=== PATIENT | male | born 1990 | race Caucasian/White ===

== ENCOUNTER 2019-05-28 19:14 | Inpatient (IN) | payer OTHER ==
[~2019-05-28] VITALS: Ht 182.9 cm; Wt 114.8 kg
[2019-05-28 21:19] LABS: CALCIUM 8.3 mg/dL (8.5-10.1); CARBON DIOXIDE 27.4 mmol/L (21-32); CHLORIDE SERUM 98 mmol/L (98-107); CREATININE SERUM 1.3 mg/dL (0.7-1.3); GFR1 > 60 mL/min; GLUCOSE SERUM 126 mg/dL (74-106); POTASSIUM SERUM 3.1 mmol/L (3.5-5.1); SODIUM SERUM 136 mmol/L (136-145)
[2019-05-28 21:24] LABS: ALBUMIN 2.7 g/dL (3.4-5.0); ALKALINE PHOSPHATASE 89 U/L (46-116); ALT/SGPT 50 U/L (16-63); AST/SGOT 36 U/L (15-37); BILIRUBIN TOTAL 0.42 mg/dL (0.20-1.00); LIPASE 74 IU/L (73-393); TOTAL PROTEIN, SERUM 7.4 g/dL (6.4-8.2)
[2019-05-28 21:32] LABS: PLATELET COUNT 344 x10^3mcL (130-400); RED CELL DISTRIBUTION WIDTH 14.1 % (11.5-14.5)
[2019-05-28 21:34] LABS: BASOPHIL % 0 % (0-2)
[2019-05-29 02:34] VITALS: BP 115/58
[2019-05-29 02:53] LABS: microscopic required? YES; urine erythrocyte 1+ (NEGATIVE)
[2019-05-29 03:02] LABS: AMPHETAMINE QUAL UR NONE DETECTED (See below)
[2019-05-29 05:08] VITALS: BP 102/45
[2019-05-29 06:43] LABS: BASOPHIL % 0.3 % (0-2); PLATELET COUNT 334 x10^3mcL (130-400)
[2019-05-29 06:47] LABS: CALCIUM 7.7 mg/dL (8.5-10.1); CARBON DIOXIDE 24.2 mmol/L (21-32); CHLORIDE SERUM 104 mmol/L (98-107); CREATININE SERUM 1.1 mg/dL (0.7-1.3); GFR1 > 60 mL/min; GLUCOSE SERUM 106 mg/dL (74-106); POTASSIUM SERUM 3.2 mmol/L (3.5-5.1); SODIUM SERUM 140 mmol/L (136-145)
[2019-05-29 06:51] LABS: RED CELL DISTRIBUTION WIDTH 14.7 % (11.5-14.5)
[2019-05-29 16:33] VITALS: BP 106/71
[2019-05-29 19:28] VITALS: BP 102/61
[2019-05-30 06:04] VITALS: BP 112/74
[2019-05-30 06:53] LABS: CALCIUM 8.2 mg/dL (8.5-10.1); CARBON DIOXIDE 24.2 mmol/L (21-32); CHLORIDE SERUM 109 mmol/L (98-107); CREATININE SERUM 0.8 mg/dL (0.7-1.3); GFR1 > 60 mL/min; GLUCOSE SERUM 115 mg/dL (74-106); MAGNESIUM 2.2 mg/dL (1.8-2.4); PHOSPHOROUS 3.7 mg/dL (2.5-4.9); POTASSIUM SERUM 3.7 mmol/L (3.5-5.1); SODIUM SERUM 143 mmol/L (136-145)
[2019-05-30 08:43] VITALS: BP 111/69
[2019-05-30 10:30] LABS: PLATELET COUNT 349 x10^3mcL (130-400)
[2019-05-30 10:32] LABS: BASOPHIL % 0 % (0-2); RED CELL DISTRIBUTION WIDTH 14.8 % (11.5-14.5)
[2019-05-30 12:01] VITALS: BP 109/62
[2019-05-30 17:20] VITALS: BP 113/67
[2019-05-30 19:37] VITALS: BP 116/68
[2019-05-31 03:51] VITALS: BP 103/62
[2019-05-31 06:26] LABS: CARBON DIOXIDE 26.7 mmol/L (21-32); CHLORIDE SERUM 107 mmol/L (98-107); CREATININE SERUM 0.8 mg/dL (0.7-1.3); GFR1 > 60 mL/min; GLUCOSE SERUM 90 mg/dL (74-106); MAGNESIUM 1.8 mg/dL (1.8-2.4); PHOSPHOROUS 4.9 mg/dL (2.5-4.9); SODIUM SERUM 143 mmol/L (136-145)
[2019-05-31 06:48] LABS: BASOPHIL % 0.3 % (0-2); PLATELET COUNT 389 x10^3mcL (130-400)
[2019-05-31 07:29] LABS: RED CELL DISTRIBUTION WIDTH 14.6 % (11.5-14.5)
[2019-05-31 08:37] VITALS: BP 141/88
[2019-05-31] MEDS ORDERED: FLA500 PO (11:51)
[2019-05-31 12:01] VITALS: BP 111/74
[2019-05-31 13:14] VITALS: BP 111/74
== END 2019-05-31 17:33 | disposition home or self-care (01) | DRG 853 ==
LOC: ED 19:14 → DU 05-29 00:55
PROVIDERS: Emergency Medicine; Surgery; ADMIT Internal Medicine
PROC: 0DTJ4ZZ Resection of Appendix, Percutaneous Endoscopic Approach (ICD-10-PCS; principal; 2019-05-29 07:30)
DX: A41.9 Sepsis, unspecified organism (principal); K35.32 Acute appendicitis with perforation, localized peritonitis, and gangrene, without abscess; E87.6 Hypokalemia; E83.51 Hypocalcemia; K21.9 Gastro-esophageal reflux disease without esophagitis; Z82.49 Family history of ischemic heart disease and other diseases of the circulatory system; Z23 Encounter for immunization
CPT/HCPCS: 82962; 87046; 87046-59; 90658; G0378; J0330; J0694; J1170; J2270; J2405; J2543; J2704; J2710; J3010; J3480; J3490; J7030; J7120

== ENCOUNTER 2019-08-15 18:49 | Emergency (ER) | payer OTHER ==
[~2019-08-15] VITALS: Ht 182.9 cm; Wt 117.0 kg
[~2019-08-15 18:49] MED LIST: FLA500 PO
[2019-08-15 19:18] VITALS: Ht 182.9 cm; Wt 117.0 kg
[2019-08-15 20:57] LABS: BASOPHIL % 0.3 % (0-2); PLATELET COUNT 356 x10^3mcL (130-400); RED CELL DISTRIBUTION WIDTH 14.8 % (11.5-14.5)
[2019-08-15 21:37] LABS: CARBON DIOXIDE 24.6 mmol/L (21-32); CHLORIDE SERUM 103 mmol/L (98-107); GLUCOSE SERUM 84 mg/dL (74-106); POTASSIUM SERUM 3.5 mmol/L (3.5-5.1); SODIUM SERUM 138 mmol/L (136-145)
[2019-08-15 21:38] LABS: ALBUMIN 3.9 g/dL (3.4-5.0); CALCIUM 8.9 mg/dL (8.5-10.1); CREATININE SERUM 0.8 mg/dL (0.7-1.3); GFR1 > 60 mL/min
[2019-08-15 21:39] LABS: ALKALINE PHOSPHATASE 89 U/L (46-116); ALT/SGPT 39 U/L (16-63); AST/SGOT 22 U/L (15-37); BILIRUBIN TOTAL 0.3 mg/dL (0.20-1.00); LIPASE 131 IU/L (73-393)
[2019-08-16 01:09] VITALS: BP 127/74
== END 2019-08-16 01:09 | disposition home or self-care (01) ==
LOC: ED 18:49
PROVIDERS: Emergency Medicine
DX: K57.90 Diverticulosis of intestine, part unspecified, without perforation or abscess without bleeding (principal); Z90.89 Acquired absence of other organs
CPT/HCPCS: J2270; J2405; J7030